=== PATIENT | female | born 1940 | race Caucasian/White ===

== ENCOUNTER → 2021-06-26 07:31 | Outpatient (CLI) | payer MEDICARE, SELFPAY ==
[2021-06-26 10:00] LABS: COVID19 -Nasal RAPID Negative (Negative)
== END ==
PROVIDERS: PCP Family Medicine; Visit Provider Nurse Practitioner Family
DX: Z20.822 Contact with and (suspected) exposure to COVID-19 (principal)
CPT/HCPCS: 87635

== ENCOUNTER 2021-06-27 08:00 | Day surgery (SDC) | payer MEDICARE, SELFPAY ==
--- NOTE | 2021-06-27 | PATH_ITS ---
[facility] Accession Number: [id number] . 01 Material submitted: . gastrointestinal site - GASTRIC NODULE BIOPSY . 02 Diagnosis: Gastric Nodule, Biopsy: Gastric antral mucosa with erosion, reactive foveolar hyperplasia and focal intestinal metaplasia. Intestinal metaplasia present in one of two biopsy fragments. Negative for Helicobacter by immunohistochemistry. Negative for intestinal metaplasia. Negative for dysplasia or malignancy. MRV 07/02/2021 1210 Local . 02 Electronically signed: . Sylvester Sierra MD, PhD, Pathologist NPI- [id number] . 01 Gross description: . GASTRIC NODULE BIOPSY: Received in formalin are 2 fragment(s) of esparza, soft tissue measuring 0.2 x 0.2 x 0.2 cm to 0.3 x 0.3 x 0.2 cm submitted entirely in 1 cassette(s) /OSMAR 06/28/2021 0155 Local . 02 Microscopic: . An immunohistochemical stain was performed to evaluate for Helicobacter organisms and is negative. The control stain showed appropriate reactivity. . * This test was developed and its performance characteristics determined by [facility]. It has not been cleared or approved by the U.S. Food and Drug Administration. The FDA has determined that such clearance or approval is not necessary. This test is used for clinical purposes. It should not be regarded as investigational or for research. . 02 Pathologist provided ICD-10: K29.70, K31.9 . 02 CPT . 875541, [id number] Performed at: 01 [facility] [address] [facility], [place], [place] [id number] MD Christopher Garner MD Phone: [phone] Performed at: 02 [facility] [id number] [place], [place] [id number] MD Silvina Ross MD Phone: [phone]
[2021-06-27 08:31] VITALS: BP 130/68; PULSE 80; RESP 14; TEMP 38.1; O2SAT 97; BMI 19.9
--- NOTE | 2021-06-27 08:54 | PM.HP.1 ---
History of Present Illness History of Present Illness Date Patient Seen: 06/27/21 Chief complaint: EGD W/POSS BX Narrative: Odynophagia Patient History Family & Social History Social History: household members none Tobacco & Substance use: Smoking Status Never smoker alcohol intake never Substance Use Type does not use Meds Home Medications and Allergies Home Medications Medication Instructions Recorded Confirmed Type amlodipine 2.5 mg tablet mg 06/27/21 History atenolol 50 mg tablet mg 06/27/21 History baclofen 10 mg tablet mg 06/27/21 History buspirone 10 mg tablet mg 06/27/21 History gabapentin 100 mg capsule mg 06/27/21 History hydrocodone 7.5 mg-acetaminophen tab 06/27/21 History 325 mg tablet losartan 50 mg tablet mg 06/27/21 History methadone 5 mg tablet mg 06/27/21 History oxybutynin chloride 5 mg tablet mg 06/27/21 History sertraline 100 mg tablet mg 06/27/21 History zolpidem 10 mg tablet mg 06/27/21 History Allergies Allergy/AdvReac Type Severity Reaction Status Date / Time Sulfa (Sulfonamide Allergy Severe Swelling Verified 06/27/21 08:23 Antibiotics) of Lip/Tongue/Throat epinephrine AdvReac Intermediate Headache Verified 06/27/21 08:23 Exam Vital Signs (past 8 hours): - 06/27/21 08:31 Temperature 100.5 F H Pulse Rate 80 Respiratory Rate 14 Blood Pressure 130/68 Pulse Oximetry 97 Oxygen Delivery Method Room Air Narrative Exam Narrative: Oropharynx free of lesions Chest clear to auscultation percussion Cardiac exam reveals no S3 or murmur Assessment & Plan Assessment & Plan narrative: Odynophagia unresponsive to acid suppressing medications and nystatin. Rule out inflammatory lesion. Risks, benefits, alternatives have been explained. Time Spent With Patient Critical Care time: I spent a total of [] minutes of critical care time on this patient's care today; this time is exclusive of procedural time.
--- NOTE | 2021-06-27 08:56 | PM.OP.EGD ---
Operative Date/Time/Diagnoses Date of procedure: 06/27/21 Pre-op diagnosis: See indication and findings Procedure & Clinicians Study performed: EGD Indications: Odynophagia Surgeon: Raina Martínez Procedure Notes Procedure in detail: After informed consent was obtained the patient was placed in left lateral decubitus position. Video upper scope placed into the oropharynx and with the patient's help swelled esophagus. The esophagus stomach and duodenum were carefully examined. On withdrawal retroflexed view the GE junction was performed. The scope was removed. The patient tolerated procedure well. Blood loss none Complications none Sedation mac Findings 1. Normal esophagus 2. Small to medium gastric remnant approximately 8-10 cm in length. Beefy red mucosa. One aspect had a polyp in this area was biopsied 3. 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 One of these 3 areas could not be entered with the scope and was somewhat strictured. No areas had liliana ulceration as they did previous EGD 2016. 4. Both limbs could be entered where entered and examined 30-40 cm past the anastomosis. No evidence on EGD to suggest a reason for odynophagia. Biopsies taken of abnormal mucosa in the gastric remnant. Further recommendations will follow once biopsies return.
[2021-06-27 09:10] VITALS: BP 116/50; PULSE 73; RESP 16; TEMP 37.1; O2SAT 93
[2021-06-27 09:15] VITALS: BP 128/60; PULSE 76; RESP 16; O2SAT 93
[2021-06-27 09:20] VITALS: BP 137/69; PULSE 78; RESP 18; O2SAT 93
[2021-06-27 09:25] VITALS: BP 132/61; PULSE 79; RESP 16; TEMP 37; O2SAT 92
[2021-06-27 09:31] VITALS: BP 131/58; PULSE 75; RESP 16; O2SAT 92
== END 2021-06-27 09:42 | disposition home or self-care (01) ==
PROVIDERS: Referring Provider Internal Medicine Gastroenterology; Visit Provider Internal Medicine Gastroenterology
PROC: 0DJ08ZZ Inspection of Upper Intestinal Tract, Via Natural or Artificial Opening Endoscopic (ICD-10-PCS; CPT 43235; principal; 2021-06-27 09:00)
DX: K31.9 Disease of stomach and duodenum, unspecified (principal); K58.9 Irritable bowel syndrome, unspecified; E73.9 Lactose intolerance, unspecified
CPT/HCPCS: 43239; J2704